=== PATIENT | male | born 1995 | race Caucasian/White ===

== ENCOUNTER 2016-07-22 08:35 | Emergency (ER) | payer SELFPAY ==
--- NOTE | 2016-07-22 10:33 | UC ---
Throat Pain/Nasal Mitesh HPI - HPI Summary HPI Summary: complaint of nasal congestion and cough that started 2 days ago entire body is feeling achy headaches mild sore throat yesterday normal temp - this morning 102.8 feels nauseated -denies vomiting ad diarrhea took some ibuprofen with relief no use of albuterol during this illness. - History of Current Complaint Chief Complaint: UCGeneralIllness Stated Complaint: FEVER SORE THROAT Time Seen by Provider: 07/22/16 10:13 Hx Obtained From: Patient - Allergies/Home Medications Allergies/Adverse Reactions: Allergies Allergy/AdvReac Type Severity Reaction Status Date / Time Contrast Dye Allergy Unknown Hives Uncoded 02/10/13 16:27 Bees Allergy Swelling Uncoded 07/22/16 09:05 Home Medications: Home Medications Acetaminophen [Extra Strength Acetaminop] 2 tab PO PRN 07/22/16 [History] Cough Medicine 07/22/16 [History] PMH/Surg Hx/FS Hx/Imm Hx Previously Healthy: Yes - no seizures for 3 years Endocrine History Of: Denies: Diabetes, Thyroid Disease Cardiovascular History Of: Denies: Cardiac Disorders, Hypertension Respiratory History Of: Reports: Asthma Denies: COPD GI/ History Of: Denies: Ulcer Neurological History Of: Reports: Seizures - Surgical History Surgical History: Yes Surgery Procedure, Year, and Place: LEFT EYE SURGERY - Family History Known Family History: Negative: Cardiac Disease, Hypertension, Diabetes - Social History Occupation: Employed Full-time Lives: With Family Alcohol Use: Rare Substance Use Type: None Smoking Status (MU): Never Smoked Tobacco Review of Systems Constitutional: Fever Skin: Negative Eyes: Negative ENT: Sore Throat, Nasal Discharge Respiratory: Cough Cardiovascular: Negative Gastrointestinal: Negative Genitourinary: Negative Motor: Negative Neurovascular: Negative Musculoskeletal: Negative Neurological: Headache Psychological: Negative All Other Systems Reviewed And Are Negative: Yes Physical Exam Triage Information Reviewed: Yes Appearance: No Pain Distress, Well-Nourished Vital Signs: Initial Vital Signs Temp 98.4 F 07/22/16 08:59 Pulse 112 07/22/16 08:59 Resp 18 07/22/16 08:59 BP 131/79 07/22/16 08:59 Pulse Ox 98 07/22/16 08:59 Vital Signs Reviewed: Yes Eyes: Positive: Conjunctiva Clear ENT: Positive: Pharyngeal erythema, Nasal congestion, Nasal drainage, TMs normal , Other: - no sinus tenderness Neck: Positive: No Lymphadenopathy Respiratory: Positive: Lungs clear, Normal breath sounds, No respiratory distress Cardiovascular: Positive: No Murmur, Pulses Normal, Tachycardia Abdomen Description: Positive: Nontender, No Organomegaly, Soft Bowel Sounds: Positive: Present Musculoskeletal Exam: Normal Neurological Exam: Normal Psychological Exam: Normal Skin Exam: Normal Throat Pain/Nasal Course/Dx - Course Course Of Treatment: exam completed. supportive treatment only - Differential Dx/Diagnosis Differential Diagnosis/HQI/PQRI: Influenza, URI, Other - viral illness Provider Diagnoses: influenza A Discharge - Discharge Plan Condition: Stable Disposition: HOME Patient Education Materials: Influenza (ED) Referrals: Non Staff,Doctor [Primary Care Provider] - [facility] [Outside] Additional Instructions: Your blood pressure is pre-hypertensive reading. Please contact your primary care provider within 1 day -4 weeks for further evaluation TREATING THE FLU (Influenza) What is the Flu? Influenza, or "flu," is an infection of the breathing tubes and lungs. Flu happens mostly in late fall, winter, or early spring. It is very easily spread from one person to another by coughing and sneezing. The flu affects people of all ages. Symptoms Might Include: Stuffed up or runny nose Cough which may be worse at night that lasts for one to two weeks Fever especially the first 2 days and which may go up and down Headache and muscle aches Mild sore throat Poor appetite Tiredness Influenza (Flu) Vaccine Much of the illness and caused by influenza can be prevented by annual flu vaccination. It is especially recommended for people who are at high risk. Those at higher risk include all people aged 65 years or older and people of any age with chronic diseases of the heart, lung or kidneys, diabetes, immunosuppression, or severe forms of anemia. Other high-risk groups are, women who will be more than 3 months during the flu season, and children. Treatment Recommendations: Take acetaminophen (Tylenol, etc.) for aches and fever. Do not ever give aspirin to children. Drink lots of fluids. Use a cool-mist humidifier night and day if it helps you. Keep room at a comfortable temperature for you. Do not overheat the room. Do not overdress. Do not smoke. Get as much rest as you can. Call Your Doctor or Return Here IF: You have a fever that lasts for more than three days. You have trouble breathing. You begin to cough up green, yellow, or red mucous. Your cough gets worse or you have chest pain with coughing or deep breathing. You start to have any other symptoms that worry you.
[2016-07-22 11:19] VITALS: BP 119/78
== END 2016-07-22 11:12 | disposition home or self-care (01) ==
LOC: UCEAST 08:35
DX: J09.X2 Influenza due to identified novel influenza A virus with other respiratory manifestations (principal)
CPT/HCPCS: 87502; 99211; G0463